=== PATIENT | female | born 1985 | race Caucasian/White ===

== ENCOUNTER 2018-05-29 09:25 | Outpatient (CLI) | payer OTHER | END 2018-05-29 09:28 | disposition home or self-care (01) | LOC: SONOGRAMA 09:25 | DX: E04.2 Nontoxic multinodular goiter (principal) ==

== ENCOUNTER → 2022-09-22 | Outpatient (CLI) | payer OTHER | END | disposition home or self-care (01) | LOC: SONOGRAMA 16:01 | PROVIDERS: ATTEND Pathology Anatomic Pathology & Clinical Pathology | DX: E04.1 Nontoxic single thyroid nodule (principal) ==